=== PATIENT | male | born 1965 | race Hispanic/Latino ===

== ENCOUNTER 2016-10-22 01:29 | Inpatient (IN) | payer MEDICARE ==
[2016-10-22 02:32] LABS: Basophils % (Auto) 0.8 % (0.0-1.8); Eosinophils % (Auto) 2.1 % (0.0-4.3); Hematocrit 37.6 % (35.5-45.6); Hemoglobin 12.3 gm/dl (11.8-15.2); Mean Corpuscular HGB Conc 33 % (32-34); Mean Corpuscular Hemoglobin 28 pg (28-32); Mean Corpuscular Volume 86 fl (84-94); Platelet Count 206 K/mm3 (140-440); Red Blood Count 4.36 M/mm3 (3.65-5.03); Red Cell Distribution Width 14.9 % (13.2-15.2); White Blood Count 4.2 K/mm3 (4.5-11.0)
[2016-10-22 02:49] LABS: BUN/Creatinine Ratio 10.71; Calcium 8.5 mg/dL (8.4-10.2); Chloride 101.9 mmol/L (98-107); Potassium 4.3 mmol/L (3.6-5.0)
[2016-10-22] MEDS: NITROSTAT SL PRN ×3 (07:53→09:09)
[2016-10-22] MEDS ORDERED: LOPRESSOR IV ONE ×2 (08:14→08:46)
[2016-10-22] MEDS ORDERED: MORPHINE IV ONE (08:14)
[2016-10-22] MEDS ORDERED: ASPIRIN PO ONE (08:14)
--- NOTE | 2016-10-22 08:16 | Emergency Department Report ---
ED Chest Pain HPI - General Chief Complaint: Chest Pain Stated Complaint: CHEST PAIN Time Seen by Provider: 10/22/16 08:04 Source: patient, RN notes reviewed Mode of arrival: Ambulatory Limitations: No Limitations - History of Present Illness Initial Comments: This is a 51-year-old male. He is previously unknown to me. He reports a history of congestive heart failure, reports that his ejection fraction is 15%. Does not have an ICD device, does not currently have a life vest. 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 He presents to the ER complaining of chest pain. The chest pain essentially radiates to the back. There is no vomiting, shortness of breath or diaphoresis. There is no hematemesis, there is no bright red blood per rectum. There is no leg pain. There is no leg swelling. No recent trips greater than 4 hours, no recent hospital admissions. Patient cannot describe exacerbating or relieving factors and chest pain. MD Complaint: chest pain Pain Location: substernal, left chest Pain Radiation: back Severity scale (0 -10): 10 Quality: tightness, aching, heaviness Consistency: constant Improves With: nothing Worsens With: nothing Treatments Prior to Arrival: aspirin Aspirin use within the Past 7 Days: (1) Yes - Related Data On Oral Contraceptives: No Previous Rx's Medication Instructions Recorded Last Taken Type Carvedilol [Coreg] 12.5 mg PO BID #60 tablet 10/23/16 Unknown Rx Spironolactone [Aldactone] 25 mg PO QDAY #30 tablet 10/23/16 Unknown Rx hydrALAZINE [Apresoline TAB] 25 mg PO Q8HR #90 tablet 10/23/16 Unknown Rx Allergies Allergy/AdvReac Type Severity Reaction Status Date / Time MADELAINE Inhibitors Allergy Shortness Verified 10/22/16 02:29 of Breath Pork/Porcine Containing Allergy Vomiting Verified 10/22/16 02:29 Products shellfish derived Allergy Vomiting Verified 10/22/16 02:29 ANA LAURA score - Ana Laura Score Age > 65: (0) No Aspirin use within the Past 7 Days: (1) Yes 3 or more CAD Risk Factors: (1) Yes 2 or more Angina events in past 24 hrs: (1) Yes Known CAD with more than 50% Stenosis: (0) No Elevated Cardiac Markers: (1) Yes ST Deviation Greater than 0.5mm: (0) No ANA LAURA Score: 4 ED Review of Systems ROS: Stated complaint: CHEST PAIN Other details as noted in HPI Constitutional: denies: fever Eyes: denies: vision change ENT: denies: epistaxis Respiratory: see HPI. denies: shortness of breath Cardiovascular: chest pain Gastrointestinal: denies: nausea Genitourinary: denies: urgency, dysuria Musculoskeletal: denies: back pain Neurological: denies: headache, weakness Psychiatric: denies: anxiety ED Past Medical Hx - Past Medical History Previous Medical History?: Yes Hx Hypertension: Yes Hx Congestive Heart Failure: Yes Hx Diabetes: Yes Additional medical history: neuropathy - Surgical History Past Surgical History?: Yes Additional Surgical History: bilateral toe amplutation. cataracts. varicose veins - Medications Home Medications: Home Medications Medication Instructions Recorded Confirmed Last Taken Type Carvedilol [Coreg] 12.5 mg PO BID #60 tablet 10/23/16 Unknown Rx Spironolactone [Aldactone] 25 mg PO QDAY #30 tablet 10/23/16 Unknown Rx hydrALAZINE [Apresoline TAB] 25 mg PO Q8HR #90 tablet 10/23/16 Unknown Rx ED Physical Exam - General Limitations: No Limitations General appearance: alert, in no apparent distress - Head Head exam: Present: atraumatic, normocephalic - Eye Eye exam: Present: normal appearance, EOMI. Absent: nystagmus - ENT ENT exam: Present: normal exam, normal orophraynx, mucous membranes moist, normal external ear exam - Neck Neck exam: Present: normal inspection, full ROM. Absent: tenderness, meningismus - Respiratory Respiratory exam: Present: normal lung sounds bilaterally. Absent: respiratory distress, wheezes, rales, rhonchi, stridor, decreased breath sounds - Cardiovascular Cardiovascular Exam: Present: regular rate, normal rhythm, normal heart sounds. Absent: bradycardia, tachycardia, irregular rhythm, systolic murmur, diastolic murmur, rubs, gallop - GI/Abdominal GI/Abdominal exam: Present: soft, normal bowel sounds. Absent: distended, tenderness, guarding, rebound, rigid, pulsatile mass - Rectal Rectal exam: Present: deferred - Extremities Exam Extremities exam: Present: normal inspection, full ROM, normal capillary refill. Absent: tenderness, pedal edema, joint swelling, calf tenderness - Back Exam Back exam: Present: normal inspection, full ROM. Absent: tenderness, CVA tenderness (R), CVA tenderness (L), muscle spasm, paraspinal tenderness, vertebral tenderness - Neurological Exam Neurological exam: Present: alert, oriented X3, other (Extraocular movements intact. Tongue midline. No facial droop. Facial sensation intact to light touch in the V1, V2, V3 distribution bilaterally. 5 and 5 strength in 4 extremities.. Sensation is intact to light touch in 4 extremities.). Absent: motor sensory deficit - Psychiatric Psychiatric exam: Present: normal affect, normal mood - Skin Skin exam: Present: warm, dry, intact, normal color. Absent: rash ED Course Vital Signs 10/22/16 10/22/16 10/22/16 02:25 07:53 07:55 Temperature 98.3 F Pulse Rate 84 51 L Respiratory 18 16 Rate Blood Pressure 172/106 228/140 O2 Sat by Pulse 98 Oximetry 10/22/16 10/22/16 10/22/16 08:06 08:10 08:15 Temperature Pulse Rate Respiratory Rate Blood Pressure 178/111 179/116 O2 Sat by Pulse 100 100 100 Oximetry 10/22/16 10/22/16 10/22/16 08:20 08:26 08:30 Temperature Pulse Rate 83 79 Respiratory 14 17 Rate Blood Pressure 179/116 179/116 221/146 O2 Sat by Pulse 99 100 97 Oximetry 10/22/16 10/22/16 10/22/16 08:36 08:40 08:45 Temperature Pulse Rate 71 76 75 Respiratory 11 L 18 18 Rate Blood Pressure 221/146 221/146 228/140 O2 Sat by Pulse 100 96 97 Oximetry 10/22/16 10/22/16 10/22/16 08:50 08:55 09:00 Temperature Pulse Rate 75 82 86 Respiratory 16 18 21 Rate Blood Pressure 228/140 171/112 158/99 O2 Sat by Pulse 99 97 95 Oximetry 10/22/16 10/22/16 10/22/16 09:04 09:09 09:16 Temperature Pulse Rate 79 78 83 Respiratory 16 Rate Blood Pressure 158/99 159/101 156/95 O2 Sat by Pulse 98 Oximetry 10/22/16 10/22/16 10/22/16 09:30 11:10 11:16 Temperature Pulse Rate 79 79 71 Respiratory 18 10 L Rate Blood Pressure 163/101 168/102 168/102 O2 Sat by Pulse 100 Oximetry 10/22/16 10/22/16 10/22/16 12:00 14:55 15:28 Temperature Pulse Rate 73 79 86 Respiratory 9 L Rate Blood Pressure 165/95 160/98 O2 Sat by Pulse Oximetry - Reevaluation(s) Reevaluation #1: 10/22/16 10:12 differential diagnosis: Acute coronary syndrome, unstable angina , pneumonia, GERD, gastritis, reflux, costochondritis Assessment and plan: 51-year-old male with chest pain, elevated troponins, normal renal function, no pulmonary embolus or DVT risk factors, low risk by well's criteria, perc negative. Patient is seen in consultation with cardiology , Dr. Pandya. They recommend aspirin, symptomatic therapy. They specifically do not recommend heparinization at this time, and they recommends no Plavix load. Patient had a cardiac catheterization in 2014, which demonstrated angiographically normal coronary arteries, a dilated left ventricle, with an EF of 20%. As per cardiology, patient most likely nonischemic cardiomyopathy. Case is discussed with the Hospital physician, Dr. Pacheco, who accepted the patient to his service. ED Medical Decision Making - Lab Data Result diagrams: 10/23/16 05:11 10/23/16 05:11 Vital Signs 10/22/16 10/22/16 10/22/16 02:25 07:53 07:55 Temperature 98.3 F Pulse Rate 84 51 L Respiratory 18 16 Rate Blood Pressure 172/106 228/140 O2 Sat by Pulse 98 Oximetry 10/22/16 10/22/16 10/22/16 08:06 08:10 08:15 Temperature Pulse Rate Respiratory Rate Blood Pressure 178/111 179/116 O2 Sat by Pulse 100 100 100 Oximetry 10/22/16 10/22/16 10/22/16 08:20 08:26 08:30 Temperature Pulse Rate 83 79 Respiratory 14 17 Rate Blood Pressure 179/116 179/116 221/146 O2 Sat by Pulse 99 100 97 Oximetry 10/22/16 10/22/16 10/22/16 08:36 08:40 08:45 Temperature Pulse Rate 71 76 75 Respiratory 11 L 18 18 Rate Blood Pressure 221/146 221/146 228/140 O2 Sat by Pulse 100 96 97 Oximetry 10/22/16 10/22/16 10/22/16 08:50 08:55 09:00 Temperature Pulse Rate 75 82 86 Respiratory 16 18 21 Rate Blood Pressure 228/140 171/112 158/99 O2 Sat by Pulse 99 97 95 Oximetry 10/22/16 10/22/16 10/22/16 09:04 09:09 09:16 Temperature Pulse Rate 79 78 83 Respiratory 16 Rate Blood Pressure 158/99 159/101 156/95 O2 Sat by Pulse 98 Oximetry 10/22/16 09:30 Temperature Pulse Rate 79 Respiratory 18 Rate Blood Pressure 163/101 O2 Sat by Pulse 100 Oximetry Lab Results 10/22/16 10/22/16 10/22/16 Range/Units 02:10 02:10 05:02 WBC 4.2 L (4.5-11.0) K/mm3 RBC 4.36 (3.65-5.03) M/mm3 Hgb 12.3 (11.8-15.2) gm/dl Hct 37.6 (35.5-45.6) % MCV 86 (84-94) fl MCH 28 (28-32) pg MCHC 33 (32-34) % RDW 14.9 (13.2-15.2) % Plt Count 206 (140-440) K/mm3 Lymph % (Auto) 41.3 H (13.4-35.0) % [place] % (Auto) 9.2 H (0.0-7.3) % Eos % (Auto) 2.1 (0.0-4.3) % Baso % (Auto) 0.8 (0.0-1.8) % Lymph # 1.7 (1.2-5.4) K/mm3 [place] # 0.4 (0.0-0.8) K/mm3 Eos # 0.1 (0.0-0.4) K/mm3 Baso # 0.0 (0.0-0.1) K/mm3 Seg Neutrophils % 46.6 (40.0-70.0) % Seg Neutrophils # 2.0 (1.8-7.7) K/mm3 PT (12.2-14.9) Sec. INR (0.87-1.13) APTT (24.2-36.6) Sec. Sodium 140 (137-145) mmol/L Potassium 4.3 (3.6-5.0) mmol/L Chloride 101.9 (98-107) mmol/L Carbon Dioxide 27 (22-30) mmol/L Anion Gap 15 mmol/L BUN 15 (9-20) mg/dL Creatinine 1.4 (0.8-1.5) mg/dL Estimated GFR 54 ml/min BUN/Creatinine Ratio 10.71 % Glucose 83 (75-100) mg/dL Calcium 8.5 (8.4-10.2) mg/dL Troponin T 0.041 H 0.037 H (0.00-0.029) ng/mL Triglycerides 74 (2-149) mg/dL Cholesterol 160 (50-199) mg/dL LDL Cholesterol Direct 90 (50-130) mg/dL HDL Cholesterol 56 (40-59) mg/dL Cholesterol/HDL Ratio 2.85 % 10/22/16 10/22/16 Range/Units 07:39 08:18 WBC (4.5-11.0) K/mm3 RBC (3.65-5.03) M/mm3 Hgb (11.8-15.2) gm/dl Hct (35.5-45.6) % MCV (84-94) fl MCH (28-32) pg MCHC (32-34) % RDW (13.2-15.2) % Plt Count (140-440) K/mm3 Lymph % (Auto) (13.4-35.0) % [place] % (Auto) (0.0-7.3) % Eos % (Auto) (0.0-4.3) % Baso % (Auto) (0.0-1.8) % Lymph # (1.2-5.4) K/mm3 [place] # (0.0-0.8) K/mm3 Eos # (0.0-0.4) K/mm3 Baso # (0.0-0.1) K/mm3 Seg Neutrophils % (40.0-70.0) % Seg Neutrophils # (1.8-7.7) K/mm3 PT 13.3 (12.2-14.9) Sec. INR 1.02 (0.87-1.13) APTT 30.5 (24.2-36.6) Sec. Sodium (137-145) mmol/L Potassium (3.6-5.0) mmol/L Chloride (98-107) mmol/L Carbon Dioxide (22-30) mmol/L Anion Gap mmol/L BUN (9-20) mg/dL Creatinine (0.8-1.5) mg/dL Estimated GFR ml/min BUN/Creatinine Ratio % Glucose (75-100) mg/dL Calcium (8.4-10.2) mg/dL Troponin T 0.038 H (0.00-0.029) ng/mL Triglycerides (2-149) mg/dL Cholesterol (50-199) mg/dL LDL Cholesterol Direct (50-130) mg/dL HDL Cholesterol (40-59) mg/dL Cholesterol/HDL Ratio % - EKG Data -: EKG Interpreted by Vt EKG shows normal: sinus rhythm, axis, intervals, QRS complexes, ST-T waves - EKG Data When compared to previous EKG there are: previous EKG unavailable 10/22/16 10:14 EKG #1 demonstrates normal sinus, 77 bpm, QTC 491 ms, normal axis, not consistent with STEMI, T-wave inversions in 1 and aVL. EKG #2 demonstrates normal sinus, 69 beats per minute, QTC 497 ms, persistent T- wave inversions in 1 and aVL, not morphologically consistent with STEMI. - Radiology Data Radiology results: report reviewed, image reviewed X-ray of the chest is negative for acute disease Critical care attestation.: If time is entered above; I have spent that time in minutes in the direct care of this critically ill patient, excluding procedure time. ED Disposition Clinical Impression: Non-ST elevation SD (NSTEMI) Disposition: OP ADMITTED IP TO THIS HOSP Is pt being admited?: Yes Condition: Good
--- NOTE | 2016-10-22 08:31 | XRay Report ---
AP CHEST: HISTORY: chest pain Heart and mediastinal structures are unremarkable. The lungs are clear. No evidence for pneumonia, pleural effusion or pneumothorax. Severe dextroscoliosis of the thoracolumbar spine is noted. IMPRESSION: No acute cardiopulmonary process. Scoliosis.
--- NOTE | 2016-10-22 08:36 | Admit Criteria Form ---
Admission Criteria Documentation: MYOCARDIAL INFARCTION Clinical Indications for Admission to Inpatient Care (Place 'X' for any and all applicable criteria): Admission is indicated for ANY ONE of the following (1)(2)(3)(4): [ ]I. Acute [place] [X]II. Contraindications and/or Inappropriate clinical situations for Observational Care in patients with Myocardial Infarction, when ANY ONE of the following is required: [ ]a) Patient with High risk of cardiac embolism (e.g, patients with previous cardiac embolism, LVEF < 40%, age >75 and patients with prosthetic valve) 18 [ ]b) Patient with Moderate risk including DM patient, CAD and patient aged 65-75 18 [X]c) Patient with any change in cardiac biomarker especially troponin should be managed as high risk in an inpatient setting 19 [ ]d) Physician judgement irrespective of ECG and other diagnostic findings 20 [ ]III.General contraindications and/or Inappropriate clinical situations for Observational Care in patients with Myocardial Infarction, when ANY ONE of the following is required: [ ]a) Prediction of prolongation of LOS based on ANY ONE of the following may be considered as a contraindication for observational care 2, 3, 4, 5, 6, 7, 8, 9, 10, 11 [ ]i) Age > 65 yrs. [ ]ii) Patient arriving by ambulance [ ]iii) Patient with high acuity [ ]iv) Patient requiring vital sign monitoring [ ]v) Patient on IV medication [ ]b) Systolic blood pressures 180mmHg 3,12 [ ]c) Patient with altered mental status including delirium and other alteration of consciousness, (3) [ ]d) Patient whose discharge disposition will be to a [place] [facility] home or rehabilitation home should not be managed in Emergency Department Observation Unit. CMS rule requires 3 days hospital stay before such placement. 3,13 [ ]e) Patient with failure to thrive due to broad array of etiologies 3 ,16,17 [ ]f) Inability to ambulate 3,14 Extended stay beyond goal length of stay may be needed for (1)(18)(20)(24)(25): [ ]a) Hemodynamic instability, persisting symptoms after intensive medical management, or recurring severe, prolonged symptoms [ ]b) Intravascular procedural complications such as acute vessel closure, stent thrombosis, stent malposition, or vessel dissection (26)(27)(28) [ ]c) Extravascular procedural complications such as retroperitoneal hematoma , pericardial effusion, or cardiac tamponade [ ]d) Entry site complications causing bleeding, hematoma or distal ischemia and requiring ongoing monitoring, surgical repair or surgical thrombectomy(29) [ ]e) Dangerous arrhythmia [ ]f) Complicated percutaneous coronary intervention (e.g., unsuccessful percutaneous coronary intervention or percutaneous coronary intervention of non- burns paiute vessel) [ ]g) Urgent or emergent surgery for complications of [place] (e.g., ventricular rupture, valvular insufficiency) [ ]h) Surgical revascularization via coronary artery bypass graft [ ]i) Heart failure (e.g., pulmonary edema) [ ]j) Unstable pulmonary comorbidities, including COPD or pneumonia (31) [ ]k) Acute renal failure The original [employer] content created by [employer] has been revised. The portions of the content which have been revised are identified through the use of italic text or in bold, and [employer] has neither reviewed nor approved the modified material. All other unmodified content is copyright [email or web address] Please see references footnoted in the original [email or web address] edition 2016 Admission Criteria Met: Yes
[2016-10-22] MEDS ORDERED: NITROSTAT SL ONE (08:46)
[2016-10-22] MEDS ORDERED: ASPIRIN ONE (08:46)
[2016-10-22] MEDS ORDERED: MORPHINE ONE (08:47)
[2016-10-22 08:59] LABS: INR 1.02 (0.87-1.13)
[2016-10-22 09:00] LABS: Partial Thromboplastin Time 30.5 Sec. (24.2-36.6)
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
[2016-10-22] MEDS ORDERED: DULCOLAX PR PRN (12:00)
[2016-10-22] MEDS ORDERED: ZOFRAN IV PRN (12:00)
[2016-10-22] MEDS ORDERED: TYLENOL PO PRN (12:00)
[2016-10-22] MEDS ORDERED: MILK OF MAGNESIA PO PRN (12:00)
[2016-10-22] MEDS ORDERED: D50W (25GM) IV PRN (12:00)
[2016-10-22] MEDS ORDERED: SODIUM CHLORIDE FLUSH SYRINGE 10 ML IV PRN (12:00)
[2016-10-22] MEDS ORDERED: PERCOCET 5/325 PO PRN (12:00)
[2016-10-22 13:08] LABS: Creatine Kinase MB 10.4 ng/mL (0.0-4.0)
[2016-10-22] MEDS: ALDACTONE PO SCH (14:55)
[2016-10-22] MEDS: APRESOLINE PO SCH ×2 (14:55→22:29)
[2016-10-22 15:52] LABS: Creatine Kinase MB 9.9 ng/mL (0.0-4.0)
[2016-10-22 17:36] LABS: Creatine Kinase MB 10.5 ng/mL (0.0-4.0)
[2016-10-22] MEDS ORDERED: COREG PO SCH (22:00)
[2016-10-23] MEDS: APRESOLINE PO SCH (06:02)
[2016-10-23 06:07] LABS: Basophils % (Auto) 0.7 % (0.0-1.8); Hematocrit 37.7 % (35.5-45.6); Hemoglobin 12.5 gm/dl (11.8-15.2); Mean Corpuscular HGB Conc 33 % (32-34); Mean Corpuscular Hemoglobin 28 pg (28-32); Mean Corpuscular Volume 86 fl (84-94); Platelet Count 199 K/mm3 (140-440); Red Blood Count 4.41 M/mm3 (3.65-5.03); Red Cell Distribution Width 14.9 % (13.2-15.2); White Blood Count 3.7 K/mm3 (4.5-11.0)
[2016-10-23 07:00] LABS: Calcium 8.4 mg/dL (8.4-10.2); Potassium 4.5 mmol/L (3.6-5.0)
[2016-10-23] MEDS ORDERED: COREG PO SCH ×2 (07:53→22:00)
[2016-10-23 09:10] VITALS: BP 158/93
[2016-10-23] MEDS ORDERED: LOVENOX SUB-Q SCH (10:00)
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
--- NOTE | 2016-10-23 11:07 | Progress Note ---
Assessment and Plan Chest pain, atypical LHC 2014 at [facility] shows normal coronaries, EF 20% Elevated troponin, nonspecific Hx of Dilated Nonischemic cardiomyopathy Recommendations: Continue medical therapy for his dilated nonischemic cardiomyopathy. Stable cardiac roman for discharge. F/U with [facility] as scheduled October 29. Subjective Date of service: 10/23/16 Interval history: Patient denies chest pain and shortness of breath. He is planned for discharge home today. Objective Vital Signs Temp Pulse Pulse Resp BP BP Pulse Ox 10/23/16 09:43 98 10/23/16 09:09 97.5 F L 80 18 158/93 98 10/23/16 07:00 77 10/23/16 06:02 95 H 172/93 10/23/16 04:35 98.0 F 79 20 154/64 96 10/23/16 01:20 98.7 F 95 H 18 172/93 96 10/22/16 22:29 86 161/82 10/22/16 22:28 86 161/82 10/22/16 21:55 99 10/22/16 21:49 86 20 161/82 94 10/22/16 17:35 97.4 F L 71 18 158/92 99 10/22/16 15:28 86 10/22/16 14:55 79 160/98 10/22/16 12:00 73 9 L 165/95 10/22/16 11:16 71 168/102 10/22/16 11:10 79 10 L 168/102 - Physical Examination General: No Apparent Distress HEENT: Positive: PERRL Neck: Positive: trachea midline Cardiac: Positive: Reg Rate and Rhythm Lungs: Positive: Decreased Breath Sounds Neuro: Positive: Grossly Intact Extremities: Absent: edema - Labs and Meds Cardiac Enzymes 10/22/16 10/22/16 10/22/16 Range/Units 12:09 14:50 16:33 CK-MB (CK-2) 10.4 H 9.9 H 10.5 H (0.0-4.0) ng/mL CBC 10/23/16 Range/Units 05:11 WBC 3.7 L (4.5-11.0) K/mm3 RBC 4.41 (3.65-5.03) M/mm3 Hgb 12.5 (11.8-15.2) gm/dl Hct 37.7 (35.5-45.6) % Plt Count 199 (140-440) K/mm3 Lymph # 1.6 (1.2-5.4) K/mm3 O[place]o # 0.4 (0.0-0.8) K/mm3 Eos # 0.1 (0.0-0.4) K/mm3 Baso # 0.0 (0.0-0.1) K/mm3 Comprehensive Metabolic Panel 10/23/16 Range/Units 05:11 Sodium 145 (137-145) mmol/L Potassium 4.5 (3.6-5.0) mmol/L Chloride 107.0 (98-107) mmol/L Carbon Dioxide 25 (22-30) mmol/L BUN 14 (9-20) mg/dL Creatinine 1.4 (0.8-1.5) mg/dL Glucose 123 H (75-100) mg/dL Calcium 8.4 (8.4-10.2) mg/dL
[2016-10-23] MEDS: ALDACTONE PO SCH (11:31)
== END 2016-10-23 12:41 | disposition home or self-care (01) | DRG 206 ==
LOC: ED 01:29 → 4A 08:18
PROVIDERS: ADMIT Hospitalist; ATTEND Internal Medicine
DX: M94.0 Chondrocostal junction syndrome [Tietze] (principal); I42.0 Dilated cardiomyopathy; I11.0 Hypertensive heart disease with heart failure; I16.0 Hypertensive urgency; I50.9 Heart failure, unspecified; E11.40 Type 2 diabetes mellitus with diabetic neuropathy, unspecified; Z89.422 Acquired absence of other left toe(s); Z89.421 Acquired absence of other right toe(s); Z88.8 Allergy status to other drugs, medicaments and biological substances; Z91.013 Allergy to seafood; Z91.14 Patient's other noncompliance with medication regimen; Z71.6 Tobacco abuse counseling
CPT/HCPCS: 36415; 71010; 80048; 80061; 82550; 82553; 82962; 84484; 85025; 85610; 85730; 93005; 93010; 96374; J1650; J2270